=== PATIENT | male | born 2000 | race Caucasian/White ===

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

== ENCOUNTER 2020-11-12 16:58 | Outpatient (CLI) | payer OTHER ==
[~2020-11-12 16:58] MED LIST changes: +MUCINEX DM ER1 EAC1 PO
== END 2020-11-12 18:00 | disposition home or self-care (01) ==
LOC: RAD 16:58
PROVIDERS: ATTEND Specialist
DX: J45.998 Other asthma (principal)

== ENCOUNTER 2025-03-29 10:50 | Outpatient (CLI) | payer OTHER | END 2025-03-29 14:45 | disposition home or self-care (01) | LOC: SONOGRAMA 10:50 | PROVIDERS: ATTEND Internal Medicine Gastroenterology | DX: R10.9 Unspecified abdominal pain (principal); R74.8 Abnormal levels of other serum enzymes; K76.0 Fatty (change of) liver, not elsewhere classified; K75.81 Nonalcoholic steatohepatitis (NASH) ==